=== PATIENT | female | born 1975 | race Caucasian/White ===

== ENCOUNTER 2022-11-05 06:34 | Day surgery (SDC) | payer OTHER ==
[~2022-11-05 06:34] MED LIST: Sodium Chloride 0.9% 10 ML Syringe FLUSH PRN; Sodium Chloride 0.9% 2.5 ML Syringe FLUSH PRN; Sodium Chloride 0.9% 20 ML SDV IV PRN
[2022-11-05 07:08] LABS: HEMATOCRIT 41.1 % (36.0-46.0); HEMOGLOBIN 13.9 g/dL (12.0-16.0); MEAN CORPUSCULAR HEMOGLOBIN 30.8 pg (27.0-32.0); MEAN CORPUSCULAR HGB CONC 33.8 g/dL (31.0-37.0); MEAN CORPUSCULAR VOLUME 90.9 fL (80.0-98.0); MEAN PLATELET VOLUME 9.3 fL (7.40-12.00); RED BLOOD CELL COUNT 4.52 M/uL (4.30-5.90); WHITE BLOOD CELL COUNT,WBC 9.12 K/uL (4.0-11.0)
[2022-11-05] MEDS ORDERED: Lactated Ringers 1,000 ML IV SCH (07:15)
[2022-11-05] MEDS ORDERED: propofoL 50 ML ONE (07:26)
[2022-11-05] MEDS ORDERED: Dexmedetomidine 200 MCG/2 ML SDV ONE (07:26)
[2022-11-05] MEDS ORDERED: Water For Injection, Sterile 20 ML ONE (07:26)
[2022-11-05] MEDS ORDERED: Ondansetron 4 MG/2 ML SDV ONE (07:27)
[2022-11-05] MEDS ORDERED: Lidocaine 2% 5 ML SDV ONE (07:27)
[2022-11-05] MEDS ORDERED: Ketorolac 30 MG/ML SDV ONE (07:30)
[2022-11-05] MEDS ORDERED: Albuterol 0.083% 2.5 MG/3 ML Neb Soln NEB PRN (07:53)
[2022-11-05] MEDS ORDERED: fentaNYL 50 MCG/ML SDV IVPUSH PRN (07:53)
[2022-11-05] MEDS ORDERED: Metoclopramide 10 MG/2 ML SDV IVPUSH PRN (07:53)
[2022-11-05] MEDS ORDERED: Morphine 2 MG/ML SYRINGE IVPUSH PRN (07:53)
[2022-11-05] MEDS ORDERED: Naloxone 0.4 MG/ML SDV IVPUSH PRN (07:53)
[2022-11-05] MEDS ORDERED: droPERidol 5 MG/2 ML SDV IVPUSH PRN (07:53)
[2022-11-05] MEDS ORDERED: HYDROmorphone 1 MG/ML Syringe IVPUSH PRN (07:53)
[2022-11-05] MEDS ORDERED: Ondansetron 4 MG/2 ML SDV IVPUSH PRN (07:53)
[2022-11-05] MEDS ORDERED: fentaNYL 100 MCG/2 ML SDV ONE (08:14)
[2022-11-05] MEDS ORDERED: Propofol 200 MG/20 ML SDV ONE (08:15)
[2022-11-05 10:09] VITALS: BP 110/56; PULSE 59
== END 2022-11-05 09:30 | disposition home or self-care (01) ==
LOC: MW.SDS 06:34 → MERGE 08:00 → MW.SDS 09:30
PROVIDERS: ATTEND Obstetrics & Gynecology
DX: N93.9 Abnormal uterine and vaginal bleeding, unspecified (principal); N85.8 Other specified noninflammatory disorders of uterus; E03.9 Hypothyroidism, unspecified; F17.220 Nicotine dependence, chewing tobacco, uncomplicated; F17.210 Nicotine dependence, cigarettes, uncomplicated; Z79.890 Hormone replacement therapy; Z79.899 Other long term (current) drug therapy
CPT/HCPCS: 36415; 58563; 84703; 85027; J0131; J1885; J2704; J3010; J7120; 00952; J2405; J3490